=== PATIENT | male | born 2000 | race African-American/Black ===

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

== ENCOUNTER 2018-03-29 21:04 | Emergency (ER) | payer OTHER ==
[2018-03-29 21:32] VITALS: BMI 22.8
--- NOTE | 2018-03-29 22:46 | PDOC ---
Attending Attestation - HPI HPI: This patient is a 17 year old male, with no significant PMHx , who presents to ED with his father for 2 years of lightheadedness. Patient states that he feels like he is going to faint, denies room-spinning. He also reports blurry/ double vision, and neck stiffness. He states that he feels like he is breathing too slowly. And he feels like his eyes are going to close. Patient has seen multiple specialists, cardiology, neurology, ophthalmology, ENT, PCP, and had a brain MRI for this lightheadedness however no etiology was found. Patient also reports that 1 hour prior to arriving, he had a near syncopal episode while urinating. He states that he has had these episodes approximately 3x/month. PCP:Rose Borrero 03/29/18 23:31 - Physicial Exam PE: GENERAL: Awake, alert, and fully oriented, in no acute distress HEAD: No signs of trauma EYES: PERRLA, EOMI, sclera anicteric, conjunctiva clear ENT: Auricles normal inspection, hearing grossly normal, nares patent, oropharynx clear without exudates. Moist mucosa NECK: Normal ROM, supple, no lymphadenopathy, JVD, or masses LUNGS: Breath sounds equal, clear to auscultation bilaterally. No wheezes, and no crackles HEART: Regular rate and rhythm, normal S1 and S2, no murmurs, rubs or gallops ABDOMEN: Soft, nontender, normoactive bowel sounds. No guarding, no rebound. No masses EXTREMITIES: Normal range of motion, no edema. No clubbing or cyanosis. No cords, erythema, or tenderness NEUROLOGICAL: Cranial nerves II through XII grossly intact. Normal speech, normal gait SKIN: Warm, Dry, normal turgor, no rashes or lesions noted. <Hali Diop - Last Filed: 03/29/18 23:42> - Resident Resident Name: Katia Irving - ED Attending Attestation I have performed the following: I have examined & evaluated the patient, The case was reviewed & discussed with the resident, I agree w/resident's findings & plan - Medical Decision Making 03/29/18 23:29 pt has micturition syncope 03/30/18 01:44 Pt also has panic. He will be referred to psych. <Kisha Yepez - Last Filed: 03/30/18 01:45> Heart Score/ECG Review - ECG Intrepretation Rhythm: Regular Rhythm - [place]: Normal - P and SC Prominent R with upright T in V1 (true posterior VT): No Delta Wave(s) Present: No WPW: No - QRS Poor R Wave Progression: No Q Wave Present: No - ST and T Flattened T Waves: No Prolonged Q-T Interval: No Comment:: 03/29/18 23:49 PT HAS J PONT ELEVATION - ECG Impressions Normal ECG: Yes Non-specific ST Elevation: No Ischemic Changes: No Torsades vijaya Pointes: No WPW: No Comment:: 03/29/18 23:49 EARLY REPOLARIZATION; J POINT ELEVATION <Kisha Yepez - Last Filed: 03/30/18 01:45>
--- NOTE | 2018-03-29 23:23 | PDOC ---
History of Present Illness - General Chief Complaint: Lightheaded Stated Complaint: LIGHTHEADED Time Seen by Provider: 03/29/18 22:12 - History of Present Illness Initial Comments: Efrain Briggs is an otherwise healthy 17yo man who presents with lightheadedness, neck and posterior head pain, and blurry vision for 2 years. He has been seen by multiple specialties including cardiology, neurology, ENT, and ophthalmology. He reports that his workup has included multiple blood tests , various imaging (some unknown) including an echocardiogram, EKG, and a recent brain MRI in January. He has been given multiple different medications, none of which have helped. Mr Briggs presented today because he felt his symptoms were somehwat worse. His father recently went out of town, and saw a friend who recently had inner ear surgery for vertigo. When he returned home, the father asked Mr Briggs if he had any difficulty with his balance, and Mr Briggs felt that he had some vertigo " for a few seconds" today. Due to the new symptom, he thought he should be evaluated. Mr Briggs denies any fever, chills, change in appetite, nausea/vomiting, or new medications. He denies any drug or alcohol use. Past History - Past Medical History Allergies/Adverse Reactions: Allergies Allergy/AdvReac Type Severity Reaction Status Date / Time No Known Allergies Allergy Verified 10/04/16 06:19 Home Medications: Ambulatory Orders Azithromycin [Zithromax 250mg Tablets -] 250 mg PO UTDICT #6 tab 06/08/16 - Immunization History Immunization Up to Date: Yes - Suicide/Smoking/Psychosocial Hx Smoking History: Never smoked Have you smoked in the past 12 months: No Information on smoking cessation initiated: No Hx Alcohol Use: No Drug/Substance Use Hx: No Substance Use Type: None Review of Systems - Review of Systems Comments:: General: No fevers, no chills, no weight or appetite change, no malaise HEENT: +blurry vision, +double vision, no changes in hearing, no congestion, no sore throat. +posterior headache, +b/l posterior neck pain CV: No chest pain, +occasional palpitations, +racing heart, no LE edema Pulm: No SOB, no cough, no wheezing. GI: No nausea or vomiting, no change in bowel habits, no melena : No frequency, no urgency, no dysuria Musc: No back pain, no joint swelling, no recent injury Skin: No rash, no lesions, no erythema Endo: No excessive thirst, no heat/cold intolerance Heme: No unusual bruising or bleeding, no swollen glands Neuro: No syncope, no numbness/tingling, no focal weakness Vasc: No claudication Psych: No recent change in mood, no SI or HI *Physical Exam - Vital Signs Last Vital Signs Temp Pulse Resp BP Pulse Ox 98.4 F 77 20 108/64 98 03/29/18 21:27 03/29/18 21:27 03/29/18 21:27 03/29/18 21:27 03/29/18 21:27 - Physical Exam Comments: General: Comfortable, no acute distress HEENT: PERRL, EOMI, MMM, voice normal, normal neck ROM, no LAD Cards: RRR, no murmur appreciated Pulm: Comfortable on room air, clear to auscultation bilaterally Abd: Soft, nontender, nondistended Ext: Atraumatic. No LE edema. ROM intact. Strength 5/5 and equal bilaterally Vasc: Extremities WWP. Palpable radial and pedal pulses bilaterally Skin: Normal color, no rashes or lesions Neuro: A&Ox3, CN grossly intact, normal speech, motor/sensory grossly intact and symmetric Psych: Mood appropriate to situation Moderate Sedation - Procedure Monitoring Vital Signs: Procedure Monitoring Vital Signs Temperature 98.4 F 03/29/18 21:27 Pulse Rate 77 03/29/18 21:27 Respiratory Rate 20 03/29/18 21:27 Blood Pressure 108/64 03/29/18 21:27 O2 Sat by Pulse Oximetry (%) 98 03/29/18 21:27 ED Treatment Course - LABORATORY CBC & Chemistry Diagram: 03/29/18 23:05 03/29/18 23:05 Medical Decision Making - Medical Decision Making 03/29/18 22:45 Efrain Briggs is an otherwise healthy 17yo man who presents with lightheadedness, neck and posterior head pain, and blurry vision for 2 years. He additional reports occasional other symptoms including the sensation that his head is pulsing and that he is breathing too slowly. - Per Mr Briggs, he has been seen by primary care, neurology, ophthalmology, ENT , and cardiology. Workup has included labs, EKG, echo, and MRI brain (01/2018) all of which have been normal - Exam completely normal, no abnormalities noted on neurological exam - Per chart review, no labs or EKG in our records for 2 years. Will check CBC, CMP for anemia or electrolyte abnormalities - Urine tox to r/o possibility of medication or drugs contributing to symptoms - Pt stated that he had "anxiety" and "panic" during initial interview. Discussed the possibility of referral to psychiatry for evaluation of whether anxiety is contributing to his symptoms. 03/29/18 23:42 - EKG reviewed. NSR, HR 67, normal axis. Early repolarization, but otherwise normal EKG 03/30/18 00:39 - CBC without abnormalities. Chemistry pending - Urine tox to be sent Patient signed out to Dr Agosto for the remainder of his ED care. Discussed with Dr Yepez. Katia Irving PGY1 *DC/Admit/Observation/Transfer Diagnosis at time of Disposition: Lightheaded - Discharge Dispostion Disposition: HOME Condition at time of disposition: Good - Referrals Referrals: Rose Borrero MD [Primary Care Provider] - Adis Plunkett MD [Staff Physician] - - Patient Instructions Additional Instructions: You were seen in the emergency room for lightheadedness. You have had previous tests which came back normal. Your blood test here and EKG were normal. I recommend that you keep seeing your primary care doctor and neurologist. If you need a referral to psychiatry from the anxiety you experience you can see Dr. Plunkett - Post Discharge Activity
[2018-03-29 23:39] LABS: BASO % 0.7 % (0-2.0); EOS % 3.8 % (0-4.5); HEMATOCRIT 43.8 % (35.4-49); HEMOGLOBIN 14.9 GM/dL (11.7-16.9); MCH 30.2 pg (25.7-33.7); MCHC 34.1 g/dl (32.0-35.9); MEAN CELL VOLUME 88.6 fl (80-96); MEAN PLT VOLUME 8.2 fl (7.5-11.1); MONO % 7.5 % (3.8-10.2); PLATELET COUNT 250 K/MM3 (134-434); RBC 4.94 M/mm3 (4.00-5.60); RDW 13.7 % (11.9-15.9); WHITE BLOOD COUNT 7.5 K/mm3 (4.0-10.0)
[2018-03-30 00:46] LABS: ALBUMIN 4.5 g/dl (3.4-5.0); ALK PHOS 91 U/L (45-117); ANION GAP 6 MMOL/L (8-16); BILIRUBIN,TOTAL 0.2 mg/dL (0.2-1); BLOOD UREA NITROGEN 10 mg/dL (7-18); CALCIUM 9.1 mg/dL (8.5-10.1); CHLORIDE 101 mmol/L (98-107); CO2 30 mmol/L (21-32); CREATININE 0.9 mg/dL (0.55-1.3); GLUCOSE,RANDOM 93 mg/dL (74-106); POTASSIUM 4.4 mmol/L (3.5-5.1); SGOT/AST 13 U/L (15-37); SGPT/ALT 17 U/L (13-61); SODIUM 137 mmol/L (136-145); TOT PROT 7.8 g/dl (6.4-8.2)
--- NOTE | 2018-03-30 00:47 | PDOC ---
*Physical Exam - Vital Signs Last Vital Signs Temp Pulse Resp BP Pulse Ox 98.4 F 77 20 108/64 98 03/29/18 21:27 03/29/18 21:27 03/29/18 21:27 03/29/18 21:27 03/29/18 21:27 <Belinda Agosto - Last Filed: 03/30/18 00:44> - Vital Signs Last Vital Signs Temp Pulse Resp BP Pulse Ox 98.4 F 77 20 108/64 98 03/29/18 21:27 03/29/18 21:27 03/29/18 21:27 03/29/18 21:27 03/29/18 21:27 <Kisha Yepez - Last Filed: 03/30/18 00:58> ED Treatment Course - LABORATORY CBC & Chemistry Diagram: 03/29/18 23:05 03/29/18 23:05 - ADDITIONAL ORDERS Additional order review: 03/29/18 23:05 RBC 4.94 MCV 88.6 MCHC 34.1 RDW 13.7 MPV 8.2 Neutrophils % 42.0 L D Lymphocytes % 46.0 H D Monocytes % 7.5 Eosinophils % 3.8 Basophils % 0.7 <Belinda Agosto - Last Filed: 03/30/18 00:44> - LABORATORY CBC & Chemistry Diagram: 03/29/18 23:05 03/29/18 23:05 - ADDITIONAL ORDERS Additional order review: Laboratory Results 03/29/18 23:05 Sodium 137 Potassium 4.4 Chloride 101 Carbon Dioxide 30 Anion Gap 6 L BUN 10 Creatinine 0.9 Creat Clearance w eGFR > 60 Random Glucose 93 Calcium 9.1 Total Bilirubin 0.2 AST 13 L ALT 17 Alkaline Phosphatase 91 Creatine Kinase 212 Troponin I < 0.02 Total Protein 7.8 Albumin 4.5 03/29/18 23:05 RBC 4.94 MCV 88.6 MCHC 34.1 RDW 13.7 MPV 8.2 Neutrophils % 42.0 L D Lymphocytes % 46.0 H D Monocytes % 7.5 Eosinophils % 3.8 Basophils % 0.7 <Kisha Yepez - Last Filed: 03/30/18 00:58> Medical Decision Making - Medical Decision Making 03/30/18 00:44 Pt signed out to me by Dr. Irving Previously 16 M presenting with lightheadedness, neck and posterior head pain, and blurry vision for 2 years. He has been seen by multiple specialties including cardiology, neurology, ENT, and ophthalmology. He reports that his workup has included multiple blood tests, various imaging (some unknown ) including an echocardiogram, EKG, and a recent brain MRI in January. He has been given multiple different medications, none of which have helped. Labs pending. EKG benign. <Belinda Agosto - Last Filed: 03/30/18 00:44> *DC/Admit/Observation/Transfer - Discharge Dispostion Decision to Admit order: No <Belinda Agosto - Last Filed: 03/30/18 00:44> <Kisha Yepez - Last Filed: 03/30/18 00:58> Diagnosis at time of Disposition: Lightheaded, Panic anxiety syndrome - Discharge Dispostion Disposition: HOME Condition at time of disposition: Good - Referrals Referrals: Rose Borrero MD [Primary Care Provider] - Adis Plunkett MD [Staff Physician] - Prieto Cardona NP [Nurse Practitioner] - - Patient Instructions Printed Discharge Instructions: Panic Disorder Additional Instructions: You were seen in the emergency room for lightheadedness. You have had previous tests which came back normal. Your blood test here and EKG were normal. I recommend that you keep seeing your primary care doctor and neurologist. If you need a referral to psychiatry from the anxiety you experience you can see Dr. Plunkett - Post Discharge Activity
[2018-03-30 01:27] VITALS: BP 110/64; PULSE 88; TEMP 98.5
[2018-03-30 03:50] LABS: COCAINE, UR NEGATIVE ng/ml (CUTOFF=300); METHADONE, UR NEGATIVE ng/ml (CUTOFF=300); OPIATES, URI NEGATIVE ng/ml (CUTOFF=300); PHENCYCLIDINE,URINE NEGATIVE ng/ml (CUTOFF=25); URINE AMPHETAMINES NEGATIVE ng/ml (CUTOFF=500); URINE BARBITURATES NEGATIVE ng/ml (CUTOFF=200); URINE BENZODIAZEPINES NEGATIVE ng/ml (CUTOFF=200)
--- NOTE | 2018-03-30 10:47 | EKG ---
Test Reason : Blood Pressure : / mmHG Vent. Rate : 067 BPM Atrial Rate : 067 BPM P-R Int : 164 ms QRS Dur : 088 ms QT Int : 370 ms P-R-T Axes : 076 061 052 degrees QTc Int : 390 ms NORMAL SINUS RHYTHM WITH SINUS ARRHYTHMIA EARLY REPOLARIZATION NORMAL ECG NO PREVIOUS ECGS AVAILABLE Confirmed by ELIZABETH AGUILERA, AYLA ([id number]) on 03/30/2018 10:46:44 AM Referred By: Confirmed By:AYLA JOHNSON MD
== END 2018-03-30 01:27 | disposition home or self-care (01) ==
LOC: JER 21:04
DX: R42 Dizziness and giddiness (principal); F41.0 Panic disorder [episodic paroxysmal anxiety]; R39.198 Other difficulties with micturition; R55 Syncope and collapse
CPT/HCPCS: 36415; 80053; 80307; 82550; 82553; 84484; 85025; 93005; 93010; 99282-25

== ENCOUNTER 2020-03-30 04:10 | Emergency (ER) | payer OTHER ==
[2020-03-30 04:52] VITALS: BP 131/78; PULSE 82; TEMP 98.4; BMI 30.7
== END 2020-03-30 05:52 ==
LOC: JER 04:10
DX: F41.9 Anxiety disorder, unspecified (principal)
CPT/HCPCS: 99283-25

== ENCOUNTER 2020-06-11 03:48 | Emergency (ER) | payer OTHER ==
[2020-06-11] MEDS ORDERED: ACETAMINOPHEN 1000 MG/100 ML VIAL (NON FORMULARY) IVPB ONE (04:22)
[2020-06-11 04:26] VITALS: TEMP 98.5; BMI 26.2
[2020-06-11] MEDS ORDERED: ACETAMINOPHEN INJECTION 100 ML IVPB ONE (04:48)
[2020-06-11 05:38] LABS: BASO % 1.3 % (0-2.0); EOS % 3.9 % (0-4.5); HEMATOCRIT 42.9 % (35.4-49); HEMOGLOBIN 13.9 GM/dL (11.7-16.9); MCH 28.5 pg (25.7-33.7); MCHC 32.3 g/dl (32.0-35.9); MEAN CELL VOLUME 88.3 fl (80-96); MONO % 7.2 % (3.8-10.2); NEUT % 41.6 % (42.8-82.8); PLATELET COUNT 263 K/MM3 (134-434); RBC 4.86 M/mm3 (4.00-5.60); RDW 13.6 % (11.9-15.9); WHITE BLOOD COUNT 8.7 K/mm3 (4.0-10.0)
[2020-06-11 05:58] LABS: ALBUMIN 4.4 g/dl (3.4-5.0); BLOOD UREA NITROGEN 10.5 mg/dL (7-18); CALCIUM 9.1 mg/dL (8.5-10.1)
[2020-06-11 06:01] LABS: CREATININE 0.9 mg/dL (0.55-1.3)
[2020-06-11 06:03] LABS: BILIRUBIN,TOTAL 0.6 mg/dL (0.2-1); TOT PROT 7.1 g/dl (6.4-8.2)
[2020-06-11] MEDS ORDERED: MAG HYDROX/AL HYDROX/SIMETH 30 ML UNIT-DOSE CUP PO ONE (06:06)
[2020-06-11] MEDS ORDERED: FAMOTIDINE 20 MG/50 ML IVPB 20 MG/50 ML MG IVPB ONE ×2 (06:06→06:17)
[2020-06-11] MEDS ORDERED: MAG HYDROX/AL HYDROX/SIMETH 30 ML UNIT-DOSE CUP ONE (06:17)
[2020-06-11] MEDS ORDERED: CIPROFLOXACIN 500 MG TABLET (RESTRICTED TO ID) PO ONE (09:04)
[2020-06-11] MEDS ORDERED: metroNIDAZOLE 250 MG TABLET PO ONE (09:04)
[2020-06-11 09:09] VITALS: BP 117/70; PULSE 74
== END 2020-06-11 09:15 | disposition home or self-care (01) ==
LOC: JER 03:48
PROC: 3E033NZ Introduction of Analgesics, Hypnotics, Sedatives into Peripheral Vein, Percutaneous Approach (ICD-10-PCS; principal; 2020-06-11)
PROC: 3E033GC Introduction of Other Therapeutic Substance into Peripheral Vein, Percutaneous Approach (ICD-10-PCS; 2020-06-11)
DX: R10.13 Epigastric pain (principal)
CPT/HCPCS: 36415; 74177-TC; 80053; 83690; 85025; 99285-25; J0131; Q9967

== ENCOUNTER 2020-08-02 15:31 | Emergency (ER) | payer OTHER ==
[2020-08-02 16:33] VITALS: BMI 24.0
[2020-08-02] MEDS ORDERED: ACETAMINOPHEN 1000 MG/100 ML VIAL (NON FORMULARY) IVPB ONE (16:40)
[2020-08-02] MEDS ORDERED: SODIUM CHLORIDE 0.9% 1000 ML INFUS.BAG IV ONE (16:40)
[2020-08-02] MEDS ORDERED: ACETAMINOPHEN INJECTION 100 ML IVPB ONE (17:00)
[2020-08-02 17:40] LABS: EOS % 2.2 % (0-4.5); HEMATOCRIT 45.1 % (35.4-49); HEMOGLOBIN 14.9 GM/dL (11.7-16.9); LYMPH % 33.1 % (8-40); MEAN CELL VOLUME 87.9 fl (80-96); MEAN PLT VOLUME 7.8 fl (7.5-11.1); MONO % 5.7 % (3.8-10.2); PLATELET COUNT 339 K/MM3 (134-434); RBC 5.13 M/mm3 (4.00-5.60); RDW 13.5 % (11.9-15.9); WHITE BLOOD COUNT 7.9 K/mm3 (4.0-10.0)
[2020-08-02] MEDS ORDERED: FAMOTIDINE 20 MG TABLET PO ONE (17:56)
[2020-08-02] MEDS ORDERED: ALPRAZolam 0.25 MG TABLET PO ONE (17:56)
[2020-08-02] MEDS ORDERED: ALPRAZolam 0.25 MG TABLET ONE (17:58)
[2020-08-02] MEDS ORDERED: FAMOTIDINE 20 MG TABLET ONE (17:58)
[2020-08-02 17:59] LABS: CHLORIDE 104 mmol/L (98-107); SODIUM 139 mmol/L (136-145)
[2020-08-02 18:02] LABS: ALBUMIN 4.7 g/dl (3.4-5.0); ANION GAP 6 MMOL/L (8-16); BLOOD UREA NITROGEN 12.1 mg/dL (7-18); CALCIUM 10.3 mg/dL (8.5-10.1); CO2 28 mmol/L (21-32)
[2020-08-02 18:03] LABS: GLUCOSE,RANDOM 83 mg/dL (74-106)
[2020-08-02 18:05] LABS: SGPT/ALT 13 U/L (13-61)
[2020-08-02 18:06] LABS: CREATININE 0.9 mg/dL (0.55-1.3); SGOT/AST 12 U/L (15-37)
[2020-08-02 18:07] LABS: BILIRUBIN,TOTAL 0.8 mg/dL (0.2-1); TOT PROT 8.2 g/dl (6.4-8.2)
[2020-08-02 18:08] LABS: ALK PHOS 98 U/L (45-117)
[2020-08-02 18:54] VITALS: BP 128/71; PULSE 67; TEMP 97.9
== END 2020-08-02 18:54 | disposition home or self-care (01) ==
LOC: JER 15:31
PROC: 3E0333Z Introduction of Anti-inflammatory into Peripheral Vein, Percutaneous Approach (ICD-10-PCS; principal; 2020-08-02)
DX: F41.9 Anxiety disorder, unspecified (principal); R07.89 Other chest pain
CPT/HCPCS: 36415; 71046-TC-FY; 80053; 82550; 84484; 85025; 85379; 93005; 93010; 99285-25; J0131

== ENCOUNTER 2024-04-20 12:17 | Emergency (ER) | payer OTHER ==
[2024-04-20] MEDS ORDERED: BACITRACIN ZINC 15 GM TUBE TOPICAL OINTMENT ONE (13:05)
[2024-04-20 13:25] VITALS: BP 136/69; PULSE 92; RESP 18; TEMP 98.8; BMI 25.8
[2024-04-20 14:04] LABS: BASO % 0.8 % (0-2.0); EOS % 2.3 % (0-4.5); HEMATOCRIT 45.3 % (35.4-49); HEMOGLOBIN 14.4 GM/dL (11.7-16.9); LYMPH % 30.5 % (8-40); MCH 28.6 pg (25.7-33.7); MCHC 31.9 g/dl (32.0-35.9); MEAN CELL VOLUME 89.8 fl (80-96); MEAN PLT VOLUME 7.6 fl (7.5-11.1); MONO % 8.5 % (3.8-10.2); NEUT % 57.9 % (42.8-82.8); PLATELET COUNT 352 10^3/uL (134-434); RBC 5.04 M/mm3 (4.00-5.60); RDW 12.9 % (11.9-15.9); WHITE BLOOD COUNT 7.9 K/mm3 (4.0-10.0)
[2024-04-20 14:23] LABS: POTASSIUM 4.3 mmol/L (3.5-5.1)
[2024-04-20 14:25] LABS: ALBUMIN 4.1 g/dl (3.4-5.0); BLOOD UREA NITROGEN 11.4 mg/dL (7-18); CALCIUM 9.5 mg/dL (8.5-10.1)
[2024-04-20 14:29] LABS: CREATININE 0.9 mg/dL (0.55-1.3)
[2024-04-20 14:30] LABS: BILIRUBIN,TOTAL 0.2 mg/dL (0.2-1)
[2024-04-20 14:31] LABS: TOT PROT 7.5 g/dl (6.4-8.2)
[2024-04-20 15:24] LABS: HIV INTERPRETATION NEGATIVE (NEGATIVE)
== END 2024-04-20 14:58 | disposition home or self-care (01) ==
LOC: JERFT 12:17
DX: J40 Bronchitis, not specified as acute or chronic (principal); R05.9 Cough, unspecified; R09.81 Nasal congestion; R09.82 Postnasal drip; H53.8 Other visual disturbances; Z20.822 Contact with and (suspected) exposure to COVID-19
CPT/HCPCS: 0241U-QW; 36415; 71046-TC-FY; 80053; 83036; 85025; 86803; 87389; 99284-25

== ENCOUNTER 2024-05-07 19:38 | Emergency (ER) | payer OTHER ==
[2024-05-07 19:51] VITALS: BP 118/59; PULSE 69; RESP 18; TEMP 98.7; BMI 25.0
[2024-05-07 21:17] LABS: BASO % 0.9 % (0-2.0); EOS % 3.7 % (0-4.5); HEMATOCRIT 45.5 % (35.4-49); HEMOGLOBIN 14.9 GM/dL (11.7-16.9); LYMPH % 42.2 % (8-40); MCH 29.1 pg (25.7-33.7); MCHC 32.7 g/dl (32.0-35.9); MEAN CELL VOLUME 89.2 fl (80-96); MEAN PLT VOLUME 7.3 fl (7.5-11.1); MONO % 8.1 % (3.8-10.2); NEUT % 45.1 % (42.8-82.8); PLATELET COUNT 236 10^3/uL (134-434); RBC 5.11 M/mm3 (4.00-5.60); RDW 13.3 % (11.9-15.9); WHITE BLOOD COUNT 6.3 K/mm3 (4.0-10.0)
[2024-05-07 21:41] LABS: POTASSIUM 4.4 mmol/L (3.5-5.1)
[2024-05-07 21:44] LABS: CALCIUM 9.3 mg/dL (8.5-10.1)
[2024-05-07 21:45] LABS: BLOOD UREA NITROGEN 19.6 mg/dL (7-18)
[2024-05-07 21:49] LABS: BILIRUBIN,TOTAL 0.4 mg/dL (0.2-1); TOT PROT 7.2 g/dl (6.4-8.2)
== END 2024-05-07 22:36 | disposition home or self-care (01) ==
LOC: JER 19:38 → JERFT 19:38
DX: R07.89 Other chest pain (principal); J02.9 Acute pharyngitis, unspecified; R20.2 Paresthesia of skin; R22.1 Localized swelling, mass and lump, neck
CPT/HCPCS: 0241U-QW; 36415; 80053; 84484; 85025; 93005; 93010; 99284-25